=== PATIENT | female | born 1965 | race Two or more races ===

== ENCOUNTER 2024-10-14 08:33 | Emergency (ER) | payer MEDICAID, SELFPAY ==
[2024-10-14 08:41] VITALS: BP 142/83; PULSE 74; RESP 16; TEMP 36.7; O2SAT 97; BMI 28.8
--- NOTE | 2024-10-14 08:46 | XR_ITS ---
Examination: Lumbar spine 3 views Technique one AP lateral coned lateral lower lumbar spine 3 views Exam date and time: October 14, 2024 at 0923 hours INDICATIONS: Low back pain 10 years. FINDINGS: Adequate alignment lumbar vertebral bodies on the lateral view Mild disc narrowing L5-S1 No lumbar fracture IMPRESSION: Mild disc narrowing L5-S1
--- NOTE | 2024-10-14 08:46 | XR_ITS ---
Examination: Cervical spine 4 views Technique one AP lateral swimmer's lateral coned AP odontoid cervical spine 4 views Exam date and time: October 14, 2024 0915 hours INDICATIONS: Neck pain 3 years, severe today FINDINGS: Satisfactory alignment cervical vertebral bodies No cervical fracture Advanced degenerative disc disease C5-C6, C6-C7 Intact odontoid IMPRESSION: Advanced degenerative disc disease C5-C6, C6-C7
--- NOTE | 2024-10-14 08:46 | XR_ITS ---
Examination: CT brain head without contrast. 2-D sagittal coronal reconstructions Date and time of exam:October 14, 2024 1012 hours INDICATIONS: Generalized head pain today CTDI: vol (mGy):45.6 DLP: (mGycm):854 Technique: Multiple CT axial sections of the brain have been obtained, 5 mm slice thickness. Contrast has not been administered. 2-D sagittal, coronal reconstructions have been obtained Low dose protocols were performed. One or more of the following dose reduction techniques were used; automated exposure control, adjustment of the mA and/or KV according to patient size, use of iterative reconstruction technique. Findings: No significant ventricular enlargement. Intra-axial or extra-axial hemorrhage density is not seen. No mass effect or midline shift Basal cisterns are not remarkable. Fourth ventricle is midline. Cranial vault intact. Impression: Negative for acute hemorrhage, mass effect or midline shift
[2024-10-14 09:54] LABS: Basophils % (Auto) 1 % (0-2.5); Eosinophils # (Auto) 0.1 Thou/mm3 (0.0-0.5); Eosinophils % (Auto) 2 % (0-10); Hematocrit 33.3 % (36.0-46.0); Hemoglobin 10.6 g/dL (12.0-16.0); Immature Granulocytes % (Auto) 0 % (0-0); Immature Granulocytes Auto 0.01 Thou/mm3 (0.00-0.00); Lymphocytes # (Auto) 2.3 Thou/mm3 (1.0-4.8); Lymphocytes % (Auto) 40 % (10-50); Mean Corpuscular HGB Conc 31.8 g/dl (31.0-37.0); Mean Corpuscular Hemoglobin 24.9 pg (25.0-35.0); Mean Corpuscular Volume 78 fL (80-100); Monocytes # (Auto) 0.4 Thou/mm3 (0.0-0.8); Monocytes % (Auto) 7 % (0-12); Neutrophils % (Auto) 51 % (37-80); Nucleated Red Blood Cell % 0 /100 WBC (0); Platelet Count 238 Thou/mm3 (140-440); RDW Standard Deviation 47.6 fL (36.4-46.3); Red Blood Count 4.25 Miln/mm3 (4.00-5.20); White Blood Count 5.8 Thou/mm3 (3.6-11.0)
[2024-10-14 10:10] LABS: Alanine Aminotransferase 41 U/L (10-49); Albumin, Serum 4.6 gm/dL (3.5-5.0); Albumin/Globulin Ratio 1.5 (1.2-2.2); Alkaline Phosphatase 78 U/L (46-116); Anion Gap 7 (7-16); Aspartate Amino Transferase 48 U/L (0-34); BUN/Creatinine Ratio 18 Ratio (12-20); Bilirubin,Total 0.5 mg/dL (0.3-1.2); Blood Urea Nitrogen 14 mg/dL (9-23); Calcium 9.4 mg/dL (8.3-10.6); Calcium (Corrected) 9.4 mg/dL (8.5-10.1); Carbon Dioxide 27.4 mMol/L (20.0-31.0); Chloride 104 mMol/L (98-107); Creatinine (Component) 0.8 mg/dL (0.6-1.3); Estimated Creatinine Clearance 80.3 mL/min (>60); Globulin 3.1 gm/dL (2.3-3.5); Glucose 109 mg/dL (74-106); Osmolality,Calculated 277 (275-295); Sodium 138 mMol/L (136-145); Total Protein 7.7 gm/dL (5.7-8.2); eGFR > 60 See Note
--- NOTE | 2024-10-14 10:30 | PD.EDRME ---
Rapid Medical Screening Exam RME Arrival date/time: 10/14/24 08:33 58-year-old female presents to the emergency department today complains of head and neck pain as well as lower back pain and dizziness Chief Complaint: Neck Pain/Injury Vital signs: Vital Signs Temperature 98.0 F 10/14/24 08:41 Pulse Rate 74 10/14/24 08:41 Respiratory Rate 16 10/14/24 08:41 Blood Pressure 142/83 H 10/14/24 08:41 Pulse Oximetry (%) 97 10/14/24 08:41 Oxygen Delivery Method Room Air 10/14/24 08:41
--- NOTE | 2024-10-14 11:32 | EDNOTE_ITS ---
ED Neck Injury Pain RME/HPI General Chief Complaint: Neck Pain/Injury Stated Complaint: PAIN NECK/BACK,UNABLE TO WALK STRAIGHT LINE,DIZZY Time Seen by Provider: 10/14/24 11:31 Arrival date/time: 10/14/24 08:33 A 58-year-old patient presents to the emergency room with complaints of neck pain and headache for the past day. The patient reports a history of intermittent neck pain, which typically resolves on its own. However, the pain has worsened recently, coinciding with increased studying for school. The estelita steele's primary care provider recommended an emergency department evaluation for further assessment. LOCATION: frontal SEVERITY: Symptoms are described as being severe with limitations on activities of daily living QUALITY: Symptoms are described as being dull or achy CONTEXT: The patient is unable to identify any inciting events. DURATION/TIMING: The symptoms started approximately one day ago and have been constant since then and have been progressive getting worse. ASSOCIATED SYMPTOMS: dizziness, ( resolved ) headache, neck pain MODIFYING FACTORS: The patient is unable to identify any alleviating or aggravating symptoms. PERTINENT ROS: Headache is gradual in onset, not maximal intensity at onset, not associated with syncope or presyncope, not the first or the worst, not associated with head trauma or anticoagulant use, no associated focal neurological deficits, denies associated neck pain, no recent fevers, no unexplained rashes, no recent foreign travel, immunized, no unexplained nausea or vomiting. REVIEW OF SYSTEMS: See History of Present Illness - with the exception of those mentioned in the history of present illness, all other systems reviewed and reported as negative GENERAL: In general the patient is awake, interactive, in an emergency department gurney. HEAD/EYES/EARS/NOSE/THROAT: normo-cephalic, atraumatic, mucus membranes are moist, anicteric, palpebral conjunctiva is pink, trachea is midline. CARDIOVASCULAR: regular rate and regular rhythm, no murmurs, heart sounds are not distant, strong pulses in all four extremities that are equal and symmetric bilateral upper and lower extremities, normal capillary refill. CHEST/PULMONARY: normal chest rise and fall, good air movement, clear to auscultation bilaterally, normal inspiratory to expiratory ratios without evidence of respiratory distress. NECK: No midline/Paraspinal tenderness, no step off ROM/Strenght intact No Kernig and bruzinski sign. No trauma ABDOMEN: soft, not tender, no masses appreciated BACK: normal range of motion without pain. NEUROLOGICAL: cranio-facial features are symmetric, moves all four extremities equally without obvious limitations or weakness. EXTREMITY: no tenderness to palpation over the long bones or large joints of the bilateral upper and lower extremities, no joint swelling, no joint erythema, no signs of trauma, no unilateral leg swelling and no peripheral edema. SKIN: warm, dry, well-perfused, no jaundice, no rash, no telangiectasias or petechia. PSYCH: calm, cooperative, no evidence of psychosis or agitation RME / HPI RME / HPI Narrative: 10/14/24 08:33 58-year-old female presents to the emergency department today complains of head and neck pain as well as lower back pain and dizziness Related Data Previous Rx's ?Medication ?Instructions ?Recorded Cyclobenzaprine * (FLEXERIL *) 10 mg PO Q8HR PRN muscl e spasm #15 09/10/15 tabs Allergies Allergy/AdvReac Type Severity Reaction Status Date / Time No Known Allergies Allergy Verified 10/14/24 08:37 Course Course Course Narrative: Medical Decision Making (MDM): The patient is a 58-year-old individual presenting with a 1-day history of neck pain and headache. The patient has a prior history of intermittent neck pain, which has recently worsened due to increased studying. Given the patient's symptoms, including the acute onset and worsening of the neck pain and headache, and the lack of red flags (e.g., no signs of neurological deficits, trauma, or fever), a thorough evaluation is warranted to rule out any serious underlying conditions. Given the clinical presentation and lack of emergent findings (CT, xray, labs) , the patient will be observed for any progression of symptoms. Analgesics may be prescribed for symptom management, and the patient was advised on appropriate rest, posture, and ergonomic adjustments during studying. The patient was informed of potential warning signs to watch for, such as severe or sudden worsening of symptoms, neurological changes, or signs of infection, at which point they should seek immediate care. Plan: * Symptom management with pain relief and ergonomic modifications for studying. * Follow-up with PCP as recommended. Quality Measures none Orders Category Date Time Status CT head/brain wo con Stat Exams 10/14/24 08:46 Completed XR cervical spine 2-3V Stat Exams 10/14/24 08:46 Completed XR lumbar spine 2-3V Stat Exams 10/14/24 08:46 Completed CBC Stat Lab 10/14/24 09:38 Completed CMP [Comprehensive Metabolic Panel] Stat Lab 10/14/24 09:38 Completed Reevaluation(s) Reevaluation #1: headache/neck pain resolved, comfortable to go home Vital Signs Vital signs: Vital Signs Temperature 98.0 F 10/14/24 08:41 Pulse Rate 74 10/14/24 08:41 Respiratory Rate 16 10/14/24 08:41 Blood Pressure 142/83 H 10/14/24 08:41 Pulse Oximetry (%) 97 10/14/24 08:41 Oxygen Delivery Method Room Air 10/14/24 08:41 Neck Pain Patient data External records reviewed:: [facility] previous records Clinical information provided by:: patient Social determinants that could affect healthcare access:: none Patient has the following chronic illnesses:: headache How is presenting disease/condition affected by chronic disease/condition?: exacerbated by Evaluation data The following diagnostics were reviewed and interpreted by me:: lab results and radiology exam(s) Lab and/or radiology exams considered but not ordered:: n/a Interpretation Summary: cervical xray Satisfactory alignment cervical vertebral bodies No cervical fracture Advanced degenerative disc disease C5-C6, C6-C7 Intact odontoid IMPRESSION: Advanced degenerative disc disease C5-C6, C6-C7 CT: no acute findings lumbar xray: Adequate alignment lumbar vertebral bodies on the lateral view Mild disc narrowing L5-S1 No lumbar fracture IMPRESSION: Mild disc narrowing L5-S1 Medications / Prescriptions Medications or Prescriptions considered but not ordered:: n/a Medication administrations:: n/a Consultations Consultation(s) initiated? (list below): No Diagnosis Neck Differential Diagnosis: disc disorder of cervical region, whiplash injury to neck, cervical radiculopathy, torticollis, strain of neck muscle and other (migraine, headache, head bleed ) Most likely diagnosis given after review of the tests above:: headache/ddd neck Admission Indicated Admission indicated?: not indicated Admission Request Was there a request for admission?: No Disposition Plan Disposition Plan: Discharge Discharge Attestation Discharge Attestation: The patient and all family members were given an opportunity to ask questions and understood the discharge instructions. Discharge instructions specifically effects, indications for sooner follow up or return to the emergency department, and the expected course of current diagnosis. Patient condition: Stable Discharge Plan Plan Patient Disposition: HOME (Self Care) Health Concerns: Follow with PMD as directed Take tylenol or motrin as need Return to ED if sx worsen Prescriptions/Referrals Prescriptions/Med Rec: No Action Cyclobenzaprine * (FLEXERIL *) 10 MG tablet 10 mg PO Q8HR PRN (Reason: muscle spasm) Qty: 15 0RF Referrals: No Primary/Family,Physician [Primary Care Provider] - In 1 week Problem List Clinical Impression: Degenerative arthritis of cervical spine, Headache Patient/Caregiver Discharge Instructions Education Materials: ED Degenerative Disk Disease Print Language: Romansh Stand Alone Forms: Veronica Award Info., Patient Portal Info Letter
== END 2024-10-14 11:51 | disposition home or self-care (01) ==
PROVIDERS: Nurse Practitioner Primary Care; Emergency Provider Emergency Medicine
DX: M47.812 Spondylosis without myelopathy or radiculopathy, cervical region (principal); R51.9 Headache, unspecified
CPT/HCPCS: 36415; 70450; 72040; 72100; 80053; 85025; 99284

== ENCOUNTER → 2024-10-29 | Outpatient (CLI) | payer MEDICAID, SELFPAY ==
--- NOTE | 2024-10-29 10:45 | XR_ITS ---
Examination: Diagnostic digital mammography, unilateral, left Computer aided detection 3-D breast Tomosynthesis, unilateral Date and time of exam: 10/29/2024, 10:31 AM Comparisons: May 2021 through February 2024 Indications: Follow-up left focal asymmetry Technique: Nonmagnified MLO, CC views of the left breast have been obtained, reconstructed from 3-D Tomosynthesis images. R2 computer aided detection program utilized for evaluation of suspicious masses and/or abnormal calcifications. 3-D Tomosynthesis images obtained. Technologist: Findings: The breasts are heterogeneously dense, which may obscure small masses. Stable benign-appearing focal asymmetry. Otherwise, no evidence of abnormal masses or suspicious calcifications. Impression: BI-RADS category 2: Benign findings Recommend 1 year follow-up mammogram
== END | disposition home or self-care (01) ==
LOC: CDIM 10:19
PROVIDERS: Referring Provider Physician Assistant; Visit Provider Physician Assistant
DX: R92.322 Mammographic fibroglandular density, left breast (principal); N64.89 Other specified disorders of breast
CPT/HCPCS: 77061; 77065; G0279